=== PATIENT | male | born 2005 | race African-American/Black ===

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

== ENCOUNTER 2025-05-13 11:24 | Emergency (ER) | payer OTHER, SELFPAY ==
[2025-05-13 11:38] VITALS: BP 137/88; PULSE 74; RESP 16; TEMP 36.6; O2SAT 99
--- NOTE | 2025-05-13 11:48 | ED_ITS ---
HPI - Male Genitourinary General Chief complaint: Urogenital-Male Stated complaint: std testing patient presents to the [facility] with request for STD testing. Patient noted was told in the last 2 days by a previous partner that she is positive for genital herpes. Patient noted at the time of their encounter did not have any outbreaks. partner told patient she has not had any outbreaks in 2 years. patient denies any symptoms at this time including open lesions, painful bumps, penile discharge, burning with urination, abdominal pain, urinary frequency urinating. Related Data Home Medications ?Medication ?Instructions ?Recorded ?Confirmed ?Last Taken ?Type No Home Medications 05/13/25 05/13/25 U nknown History Allergies Allergy/AdvReac Type Severity Reaction Status Date / Time No Known Allergies Allergy Verified 05/13/25 11:44 Review of Systems Constitutional: Constitutional: Reports as per HPI, Denies chills, Denies f atigue, Denies fever(s) and Denies weakness Eyes: Eyes: Reports no additional eye complaints ENT: Reports system reviewed and no additional complaints, except as documented Cardiovascular: Cardiovascular: Reports no additional cardiovascular complaints Respiratory: Respiratory: Reports no additional respiratory complaints Gastrointestinal: Gastrointestinal: Reports as per HPI, Denies abdominal pain, Denies bloating, Denies constipation, Denies heartburn, Denies diarrhea, Denies nausea and Denies vomiting Genitourinary: Genitourinary: Reports as per HPI, Denies hematuria, Denies oliguria, Denies genital lesions, Denies dysuria, Denies penile discharge, Denies testicular pain, Denies urinary frequency and Denies urinary incontinence Comments: Exposure to genital herpes Musculoskeletal: Musculoskeletal: Reports no additional musculoskeletal complaints Integumentary/Breasts: Skin/Breast: Reports as per HPI, Denies pruritus, D enies erythema, Denies rash and Denies skin ulcer Neurologic: Reports system reviewed and no additional complaints, except as documented Psychiatric: Psychiatric: Reports no additional psychiatric complaints Endocrine: Endocrine: Reports no additional endocrine complaints Hematologic/Lymphatic: Hematologic/Lymphatic: Reports no additional hematologic/lymphatic complaints Allergic/Immunologic: Allergic/Immunologic: Reports no additional allergic/immunologic complaints PMFSH Social History Social History Substance use type: marijuana Exam Const: General: healthy appearing and no acute distress Nutritional Appearance: well nourished Limitations: no limitations Resp: Effort & Inspection: normal respiratory effort Cardio: Rate: regular rate GI: GI Palp: Yes Soft to palpation, No Tenderness to palpation present (GI) and No Guarding due to palpation present (GI) Auscultation: normal bowel sounds : General: Yes bladder normal to palpation and Yes no CVA tenderness Skin: General skin exam: normal color Rashes: no rashes Wounds: no wounds Neuro: General: patient oriented x3 and moves all extremities Speech: normal speech Gait exam (Neuro): Normal gait present Psych: Mental Status: mental status grossly normal Affect: normal affect Attitude: cooperative Course Course Level of Care: Express Care Visit Vital Signs Vital signs: Vital Signs Temperature 97.9 F 05/13/25 11:38 Pulse Rate 74 05/13/25 11:38 Respiratory Rate 16 05/13/25 11:38 Blood Pressure 137/88 05/13/25 11:38 Pulse Oximetry 99 05/13/25 11:38 Temperature 97.9 F 05/13/25 11:38 Pulse Rate 74 05/13/25 11:38 Respiratory Rate 16 05/13/25 11:38 Blood Pressure 137/88 05/13/25 11:38 Pulse Oximetry 99 05/13/25 11:38 MDM - Male Genitourinary MDM Narrative Medical decision making narrative: STD testing available at this facility with urine testing only patient does not have any open lesions. educated patient 3 to 6 months after exposure can have lab work testing for the herpes virus. The patient was evaluated by myself in the [facility]. History is obtained from patient who is an independent historian and physical exam was performed. Available medical records were reviewed at this time. Exam findings show no acute concerns or changes; patient is non-toxic appearing and is in no distress. Patient is appropriate for outpatient treatment and follow-up. I have evaluated and discussed social determinants of health with the patient that could potentially impact subsequent diagnosis and treatment plans. Differential diagnosis and treatment plan were discussed with the patient. Patient agrees with discussion and after shared medical decision making agrees with plan of care. All questions were answered to the patient's satisfaction. Differential Diagnosis Differential diagnosis: Likely urinary tract infection, urethritis, epididymitis, genital herpes simplex, acute retention of urine and inguinal hernia Medical Records Attestation: I reviewed the patient's medical records. Lab Data Attestation: I reviewed the patient's lab results. Discharge Plan Discharge Clinical Impression: Encounter for screening examination for sexually transmitted disease Patient Disposition: Home Condition: Stable Instructions: Antibiotic Form, Genital Herpes Infection (ED), Safe Sex Practice s (ED) Additional Instructions: will have tested your urine for chlamydia, gonorrhea, Trichomonas. You will get a call from the [facility] with results only if they are positive if you have questions or concerns you may call the [facility]. If you continue to have symptoms follow-up with microbiology director or primary care physician for evaluation. Would recommend follow-up with primary care, microbiology director, health department (on [facility] in [place], [place]), [facility] in [place], or [facility] in [place] for further [facility]D testing or follow-up STD testing. They do have blood work testing available at these facilities. If you begin to have significant abdominal pain, fever, chills, body aches, or any other concerning symptoms go to the emergency room for further evaluation of symptoms. Patient Language: Taiwanese Prescriptions: No Action No Home Medications Follow-up/Referrals: PHYSICIAN,DRILL PRESSER [Primary Care Provider, Internal Medicine] Time of Disposition: 11:55
[2025-05-13 19:31] LABS: Trichomonas Vag PCR NOT DETECTED (NOT DETECTE)
== END 2025-05-13 11:59 | disposition home or self-care (01) ==
PROVIDERS: Emergency Provider Nurse Practitioner Family
DX: A74.9 Chlamydial infection, unspecified (principal); F12.90 Cannabis use, unspecified, uncomplicated
CPT/HCPCS: 87491; 87591; 87661; 99213; G0463

== ENCOUNTER 2025-06-20 08:06 | Emergency (ER) | payer OTHER, SELFPAY ==
--- NOTE | ~2025-06-20 | XR_ITS ---
EXAMINATION: XR knee RT 3V, 06/20/2025 8:17 AUTO SERVICER HISTORY: Rt knee pain s/p dancing last P.M. COMPARISON: No comparisons available. Findings: Slightly displaced fracture of the inferior patella. Small effusion. Soft tissues unremarkable. Impression: Patellar fracture Reviewed, dictated and finalized at location P. SERVICER Impression: Patellar fracture
[2025-06-20 08:17] VITALS: BP 115/74; PULSE 90; RESP 18; TEMP 36.1; O2SAT 98
--- NOTE | 2025-06-20 08:44 | ED.LOWEXIN ---
HPI - Extremity Injury (Lower) General Chief Complaint: Extremity Injury, Lower Stated Complaint: R Knee Pain Time Seen by Provider: 06/20/25 08:30 Source: patient and RN notes reviewed Mode of arrival: ambulatory Limitations: no limitations History of Present Illness HPI Narrative: [id number] male patient Presents [facility] complaining of injury to right knee. Patient reports last night said he was dancing was intoxicated, is that he was unsure what he did but he did fall to the ground injuring his right knee. Patient continues to have pain today. Patient is in is a head, loss of conscious, or any other injuries. Patient has been taking help with the pain. Patient denies any numbness, tingling or any other symptoms. Patient denies any significant past medical history. Related Data Allergies Allergy/AdvReac Type Severity Reaction Status Date / Time No Known Allergies Allergy Verified 06/20/25 08:17 Review of Systems Review of Systems: CONSTITUTIONAL: Denies fever, chills, or sweats. EYES: Denies visual changes, redness, or discharge. ENT: Denies rhinorrhea, congestion, sore throat, or otalgia. CARDIOVASCULAR: Denies chest pain, palpitations, or edema. RESPIRATORY: Denies cough or dyspnea. GASTROINTESTINAL: Denies abdominal pain, nausea, vomiting, or diarrhea. GENITOURINARY: Denies dysuria or hematuria. SKIN: Denies rash, wound, or itching. MUSCULOSKELETAL: Denies back pain, joint pain, or myalgia. Positive for right knee injury and swelling NEUROLOGIC: Denies headache, numbness, or weakness. PSYCHIATRIC: Denies anxiety or depression. All other systems reviewed are negative, except as documented in HPI. PMFSH Social History Social History Substance use type: marijuana Comments At the time of my signature, I reviewed and agree with the nursing past medical, surgical, social, and family history. There is no relevant family history pertinent to the patient complaint. Exam Narrative: GENERAL: This is a well-nourished, well-developed adult, in no apparent distress. They are non ill-appearing, nontoxic appearing. HEAD: normocephalic, atraumatic. EYES: Sclera clear/white. Vision is grossly intact. Conjunctiva normal. Extraocular movement intact. EARS: External ears normal Hearing grossly intact. NOSE: External nose normal THROAT: Mucous membranes moist NECK: Neck supple CARDIOVASCULAR: Regular rate and rhythm RESPIRATORY: Respiratory rate normal, respiratory effort nonlabored, no respiratory distress NEURO: awake, alert, and oriented to person, place and time. There were no obvious focal neurologic abnormalities. EXTREMITIES: No obvious deformity, injury, bruising, redness. Mild swelling over the knee. There is pain through full range of motion. Patella tender to palpate. No obvious step-offs appreciated. No Crepitus. Capillary refill less than 3 seconds. Normal sensation. Neurovascular status intact distal injury. No valgus or varus laxity. BACK: Nontender without deformity. Course Course Level of Care: Express Care Visit Vital Signs Vital signs: Vital Signs Temperature 97 F L 06/20/25 08:17 Pulse Rate 90 06/20/25 08:17 Respiratory Rate 18 06/20/25 08:17 Blood Pressure 115/74 06/20/25 08:17 Pulse Oximetry 98 06/20/25 08:17 Temperature 97 F L 06/20/25 08:17 Pulse Rate 90 06/20/25 08:17 Respiratory Rate 18 06/20/25 08:17 Blood Pressure 115/74 06/20/25 08:17 Pulse Oximetry 98 06/20/25 08:17 Procedures Orthopedic Splinting/Casting Injury #1: Splinting/Casting Date: 06/20/25 Splinting/Casting Time: 08:45 Side: right Lower Extremity Injury Location: knee Lower Extremity Immobilizer: knee immobilizer Splint: prefabricated Pre-Formed: knee immobilizer Pre-Procedure Neuro Vascular Exam: normal Post-Procedure Neuro Vascular Exam: normal Other Orthopedic Equipment: crutches MDM MDM Narrative Medical decision making narrative: X-ray right knee reveals a minimally displaced right patella fracture. Patient given crutches and a knee immobilizer have advised to be nonweightbearing. Referral to ortho given. Discussed supportive care and rice therapy. Discussed physical exam findings. Advised supportive measures and signs/symptoms to go to the ER. Pt is appropriate for outpt treatment and f/u. Differential Diagnosis Differential Diagnosis: Knee fracture, patellar fracture, knee contusion, knee sprain, patella dislocation Imaging Data Radiologist's impression: ITS Impressions Knee X-Ray 06/20/25 08:30 Impression: Patellar fracture Critical Care Time Critical Care Time Critical Care Time: No Discharge Plan Discharge Clinical Impression: Fracture, patella Qualifiers: Encounter type: initial encounter Fracture type: closed Fracture morphology: unspecified fracture morphology Fracture alignment: displaced Laterality: right Qualified Code(s): S82.001A - Unspecified fracture of right patella, initial encounter for closed fracture Patient Disposition: Home Condition: Stable Instructions: Patellar Fracture (ED), Knee Immobilizer (ED) Additional Instructions: X-ray your right knee shows a minimally displaced patella fracture. Rest and elevate the leg; do not bear weight on her right leg and until evaluated by ortho, use the crutches Wear the knee immobilizer at all times, you may take it off to shower. You may take ibuprofen 600 mg to 800 mg every 6-8 hours. Do not exceed more than 800 mg of ibuprofen per dose. Do not exceed more than 3200 mg ibuprofen in a day. You may take up to 1000 mg Tylenol every 6-8 hours. Do not exceed 1000 mg per dose, do exceed more than 4000 mg of Tylenol in a day. Apply ice 20 minutes few times a day to help with swelling. Follow up with Ortho in 3-5 days. Patient Language: Scottish Follow-up/Referrals: Pedro Narayanan MD [Physician, Orthopedics] - 3 Days Clinical Impression: Fracture, patella PHYSICIAN,[employer]WOR[employer] ASSEMBLY SUPERVISOR [Primary Care Provider, Internal Medicine] Stand Alone Forms: Work/School Release IP Time of Disposition: 08:40
== END 2025-06-20 08:50 | disposition home or self-care (01) ==
DX: S82.001A Unspecified fracture of right patella, initial encounter for closed fracture (principal); W19.XXXA Unspecified fall, initial encounter; Y93.41 Activity, dancing; Y92.9 Unspecified place or not applicable; F12.90 Cannabis use, unspecified, uncomplicated
CPT/HCPCS: 73562; 99214; G0463; L1830